=== PATIENT | male | born 1960 | race Caucasian/White ===

== ENCOUNTER 2018-06-16 07:29 | Emergency (ER) ==
[2018-06-16 07:37] VITALS: TEMP 98.6; BMI 24.4
--- NOTE | 2018-06-16 07:49 | ED.PDOC ---
General ED Provider: Dr. BERTRAM VILLAREAL Chief Complaint: Bite Stated Complaint: rash Time Seen by Physician: 07:32 (seen with shanell ) Mode of Arrival: Walk-In Information Source: Patient Exam Limitations: No limitations Nursing and Triage Documentation Reviewed and Agree: Yes Does patient meet sepsis criteria?: Yes If yes, has appropriate treatment been initiated?: No System Inflammatory Response Syndrome: Not Applicable Sepsis Protocol: For patient's 13 years and over: Temp is 96.8 and below OR 101 and greater Pulse >90 BPM Resp >20/minute Acutely Altered Mental Status Are patient's symptoms suggestive of a new infection, such as: -Pneumonia -Skin, Soft Tissue -Endocarditis -UTI -Bone, Joint Infection -Implantable Device -Acute Abdominal Infection -Wound Infection -Meningitis -Blood Stream Catheter Infection -Unknown Skin Complaint Exam - Skin Rash/Itching Complaint/Exam Onset/Duration: 1 day Symptoms Are: Still present Initial Severity: Mild Current Severity: Mild 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) Aggravating: Reports: None Alleviating: Reports: None Associated Signs and Symptoms: Denies: Difficulty breathing, Fever, Chills Skin Findings: Present: Urticaria (trunk and arms one pustule on the leg) Differential Diagnoses: Other (insect bites ) Review of Systems - Review Of Systems Constitutional: Reports: No symptoms Eyes: Reports: No symptoms Ears, Nose, Mouth, Throat: Reports: No symptoms Respiratory: Reports: No symptoms Cardiac: Reports: No symptoms GI: Reports: No symptoms : Reports: No symptoms Musculoskeletal: Reports: No symptoms Skin: Reports: Rash Neurological: Reports: No symptoms Endocrine: Reports: No symptoms Hematologic/Lymphatic: Reports: No symptoms All Other Systems: Reviewed and Negative Past Medical History - Past Medical History Previously Healthy: Yes Endocrine: Reports: None Cardiovascular: Reports: None Respiratory: Reports: None Hematological: Reports: None Gastrointestinal: Reports: None Genitourinary: Reports: None Neuro/Psych: Reports: None Musculoskeletal: Reports: None Cancer: Reports: None - Surgical History General Surgical History: Reports: None - Family History Family History: Reports: None - Social History Smoking Status: Former smoker Hx Substance Use: No Alcohol Screening: Occasionally - Immunizations Tetanus Shot up to Date: No Physical Exam - Physical Exam Appearance: Well-appearing, No pain distress, Well-nourished Eyes: LELA, EOMI, Conjunctiva clear ENT: Ears normal, Nose normal, Oropharynx normal Respiratory: Airway patent, Breath sounds clear, Breath sounds equal, Respirations nonlabored Cardiovascular: RRR, Pulses normal, No rub, No murmur GI/: Soft, Nontender, No masses, Bowel sounds normal, No Organomegaly Musculoskeletal: Normal strength, ROM intact, No edema, No calf tenderness Skin: Warm, Dry (rash on trunk resembeling urticaria and one seperate pustule lower leg see photos no hands or ) Neurological: Sensation intact, Motor intact, Reflexes intact, Cranial nerves intact, Alert, Oriented Psychiatric: Affect appropriate, Mood appropriate Critical Care Note - Critical Care Note Total Time (mins): 0 Course - Course Orders, Labs, Meds: Orders Category Date Time Status EHRLICHIA DNA, PCR Stat LAB 06/16/18 07:45 Ordered LYME, WESTERN BLOT, SERUM Stat LAB 06/16/18 Ordered IRISH MTN SPOTTED FEVER,IgG Routine LAB 06/16/18 Ordered IRISH MTN SPOTTED FEVER,IgM Routine LAB 06/16/18 07:46 Ordered Vital Signs: Temp Pulse Resp BP Pulse Ox 06/16/18 07:32 98.6 F 91 H 16 175/92 H 97 Departure - Departure Time of Disposition: 07:51 Disposition: HOME SELF-CARE Discharge Problem: Rash in adult Instructions: Acute Rash (ED) Condition: Good Pt referred to PMD for follow-up: Yes IPMP verified?: No Additional Instructions: Please call your Family Physician as soon as possible to schedule a follow-up appointment.please obtain your results in 5 days Allergies/Adverse Reactions: Allergies No Known Allergies Allergy (Unverified 06/29/14 09:49) Home Medications: Ambulatory Orders 1 [No Reported Medications] 06/29/14 Disposition Discussed With: Patient
--- NOTE | 2018-06-16 08:36 | DI ---
EXAM: Chest two view, frontal and lateral views. HISTORY: Cough. COMPARISON: None available. FINDINGS: The heart size is normal. There is no pulmonary vascular congestion. The lungs are clear . No pleural effusion or pneumothorax is seen. No acute osseous abnormality identified. IMPRESSION: No acute cardiopulmonary process.
[2018-06-16] MEDS ORDERED: ZESTRIL PO STA (09:25)
[2018-06-16 10:13] VITALS: BP 168/88
== END 2018-06-16 10:10 | disposition home or self-care (01) ==
LOC: ED 07:29
DX: R21 Rash and other nonspecific skin eruption (principal)
CPT/HCPCS: 36415; 80053; 80061; 81001; 84403; 84439; 84443; 85025; 86617; 86757; 87070; 87186; 87798; 99283

== ENCOUNTER 2018-09-07 14:32 | Outpatient (CLI) | END 2018-09-07 14:33 | disposition home or self-care (01) | LOC: FCC-LAB 14:32 | PROVIDERS: ATTEND Family Medicine | DX: I10 Essential (primary) hypertension (principal) | CPT/HCPCS: 36415; 80053 ==

== ENCOUNTER 2019-03-08 16:08 | Outpatient (CLI) | END 2019-03-08 16:09 | disposition home or self-care (01) | LOC: RHC-LAB 16:08 → FCC-LAB 16:09 | PROVIDERS: ATTEND Family Medicine | DX: I10 Essential (primary) hypertension (principal) | CPT/HCPCS: 36415; 80053 ==